=== PATIENT | male | born 1995 | race Hispanic/Latino ===

== ENCOUNTER 2017-10-25 17:44 | Emergency (ER) | payer OTHER ==
--- NOTE | 2017-10-25 18:04 | ED.PDOC ---
History of Present Illness - General Chief Complaint: Respiratory Problem Stated Complaint: cough /congestion Time Seen by Provider: 10/25/17 17:57 Source: patient Exam Limitations: no limitations - History of Present Illness Initial Comments: Niranjan Umana 22 y/o male with no chronic medical problem stated that he hadsneezing ,dry cough for the last 3 days and fever body aches today.No chronic medical problem Timing/Duration: other - 60 hours EENT Location: nose Prearrival Treatment: over the counter meds Presenting Symptoms: see hpi Improving Factors: nothing Worsening Factors: nothing Associated Symptoms: fever Allergies/Adverse Reactions: Allergies NO KNOWN ALLERGY Allergy (Verified 10/25/17 18:08) Home Medications: Ambulatory Orders Oseltamivir Capsule [Tamiflu] 75 mg PO BID 5 Days #10 capsule 10/25/17 Review of Systems - Review of Systems Constitutional: States: see HPI, fever EENTM: States: see HPI, nose congestion Respiratory: States: see HPI, cough Cardiology: States: no symptoms reported Gastrointestinal/Abdominal: States: no symptoms reported Genitourinary: States: no symptoms reported All other Systems: Reviewed and Negative, No Change from Baseline Past Medical History (General) - Patient Medical History Hx Seizures: No Hx Asthma: No Hx Hypertension: No Family Medical History - Family History Father Family History: Unknown Living Status: Still Living Physical Exam - Physical Exam General Appearance: Alert, Comfortable, No apparent distress Eye Exam: bilateral normal Ear Exam: bilateral ear: auricle normal, canal normal, TM normal Nasal Exam: other - nasal congestion Throat Exam: normal mouth inspection, pharynx normal Neck: non-tender, full range of motion, supple Cardiovascular/Respiratory: regular rate, rhythm, no M/R/G, normal peripheral pulses, normal breath sounds Abdominal Exam: non-tender, no organomegaly Neurologic: alert, oriented x 3 Skin Exam: normal color, warm/dry Progress - Progress Progress: 10/25/17 19:00 Last Vital Signs Temp 100.2 F H 10/25/17 18:09 Pulse 106 H 10/25/17 18:09 Resp 22 10/25/17 18:09 BP 129/71 10/25/17 18:09 Pulse Ox 97 10/25/17 18:09 - Results/Orders Results/Orders: FLU A POSITIVE - EKG/XRAY/CT XRAY: chest - no acute disease Departure - Departure Clinical Impression: Influenza A with respiratory manifestations Time of Disposition: 19:29 Disposition: Discharge to Home or Self Care Condition: Good Departure Forms: ED Discharge - Pt. Copy, Patient Portal Self Enrollment Instructions: DI for Influenza -- Adult Prescriptions: Oseltamivir Capsule [Tamiflu] 75 mg PO BID 5 Days #10 capsule Home Medications: Ambulatory Orders Oseltamivir Capsule [Tamiflu] 75 mg PO BID 5 Days #10 capsule 10/25/17 Additional Instructions: Tylenol 500 mg every 6 hours for fever;INCREASE ORAL FLUID INTAKE
[2017-10-25 18:14] VITALS: O2SAT 97
[2017-10-25] MEDS: OSELTAMIVIR 75 MG CAP PO ONE (19:10)
--- NOTE | 2017-10-25 19:18 | RAD ---
EXAM DESCRIPTION: Chest,2 Views CLINICAL HISTORY: cough, congestion COMPARISON: None FINDINGS: Cardiac silhouette is within normal limits. Decreased lung volumes could be secondary to underinflation. There is no focal parenchymal or pleural disease. There is no acute osseous process visualized. IMPRESSION: No evidence of acute cardiopulmonary disease. Electronically signed by: Rex Alan MD 10/25/2017 7:17 PM [employer]
[2017-10-25 20:10] VITALS: BP 135/87; TEMP 101.2
== END 2017-10-25 20:10 | disposition home or self-care (01) ==
LOC: ER 17:44
DX: J10.1 Influenza due to other identified influenza virus with other respiratory manifestations (principal)